=== PATIENT | male | born 1995 | race Caucasian/White ===

== ENCOUNTER 2024-01-19 16:43 | Emergency (ER) | payer SELFPAY ==
--- NOTE | 2024-01-19 17:04 | ED Physician Documentation ---
History of Present Illness - Stated complaint Stated Complaint: N/V - Chief complaint Chief Complaint: Abd Pain - History obtained from History obtained from: Patient - Additonal information Additional information: 28-year-old male who has a past medical history significant for cannabinol use presents with nausea and vomiting. He states symptoms started 4 days ago, and had been fairly persistent since then. His been dry heaving today as he has not been keeping much down. He denies any diarrhea or constipation, no urinary symptoms. He has not had a fever and he denies any abdominal pain other than some general soreness from vomiting. He tried some Zofran at home today but vomited it before it completely dissolved. He states that he recently started a new job and was told that there was a "virus" running through the office. No one else at home sick. Review of Systems Constitutional: reports: Reviewed and negative Eyes: reports: Reviewed and negative Ears: reports: Reviewed and negative Nose: reports: Reviewed and negative Throat: reports: Reviewed and negative Cardiac: reports: Reviewed and negative Respiratory: reports: Reviewed and negative GI: reports: Nausea, Vomiting. denies: Abdominal Pain, Abdominal Swelling, Constipation, Diarrhea : reports: Reviewed and negative Musculoskeletal: reports: Reviewed and negative Neurologic: reports: Reviewed and negative Psychiatric: reports: Reviewed and negative Endocrine: reports: Reviewed and negative PD PAST MEDICAL HISTORY - Past Medical History Past Medical History: No - Past Surgical History Past Surgical History: No - Present Medications Home Medications: Ambulatory Orders Medication Instructions Recorded Confirmed Promethazine [Phenergan] 25 mg PO Q6H PRN #10 tablet 01/19/24 - Allergies Allergies/Adverse Reactions: Allergies Allergy/AdvReac Type Severity Reaction Status Date / Time No Known Drug Allergies Allergy Verified 01/19/24 16:54 - Social History Does the pt smoke?: Yes Smoking Status: Current every day smoker Does the pt drink ETOH?: Yes Does the pt have substance abuse?: Yes Substance Use and Type: Marijuana PD ED PE NORMAL - Vitals Vital signs reviewed: Yes - General General: Alert and oriented X 3, No acute distress, Well developed/nourished - HEENT HEENT: Atraumatic, Moist mucous membranes - Neck Neck: Supple, no meningeal sign, No adenopathy - Cardiac Cardiac: RRR, No murmur - Respiratory Respiratory: No respiratory distress, Clear bilaterally - Abdomen Abdomen: Normal bowel sounds, Soft, Non tender, Non distended, No organomegaly - Derm Derm: Normal color, Warm and dry, No rash - Extremities Extremities: No deformity, No tenderness to palpate, Normal ROM s pain, No edema, No calf tenderness / cord - Neuro Neuro: Alert and oriented X 3 Eye Opening: Spontaneous - Psych Psych: Normal mood, Normal affect Results - Vitals Vitals: Vital Signs - 24 hr 01/19/24 16:47 Temperature 37.0 C Heart Rate 70 Respiratory 118 H Rate Blood Pressure 116/72 O2 Saturation 97 Oxygen O2 Source Room air - Labs Labs: Laboratory Tests 01/19/24 01/19/24 16:59 16:59 WBC 10.0 RBC 5.34 Hgb 16.3 Hct 44.2 MCV 82.8 MCH 30.5 MCHC 36.9 H RDW 11.4 L Plt Count 329 MPV 10.9 Neut # (Auto) 8.2 H Lymph # (Auto) 1.3 L [place] # (Auto) 0.5 Eos # (Auto) 0.0 Baso # (Auto) 0.0 Absolute Nucleated RBC 0.00 Nucleated RBC % 0.0 Sodium 139 Potassium 3.6 Chloride 100 L Carbon Dioxide 24 Anion Gap 15.0 H BUN 27 H Creatinine 1.0 Estimated GFR (MDRD) 88 L Glucose 107 H Calcium 10.5 H Total Bilirubin 3.5 H AST 19 ALT 13 Alkaline Phosphatase 60 Total Protein 7.7 Albumin 5.4 Globulin 2.3 Albumin/Globulin Ratio 2.3 H Lipase 16 PD Medical Decision Making - ED course Complexity details: reviewed results, re-evaluated patient, considered differential, d/w patient ED course: 28-year-old male presented with nausea and vomiting for the several days as described in HPI. The patient is well-appearing here on physical exam, mildly tachycardic but nontoxic, afebrile with stable blood pressure. He has no pain on abdominal exam specifically no right upper quadrant pain. Differentials considered included viral gastroenteritis, cannabinoid hyperemesis or cyclic vomiting, Withdrawal symptoms,pancreatitis, cholecystitis or biliary colic, abdominal infection. We obtained labs which are largely stable, he does not have a leukocytosis, his mildly elevated BUN at 27 stable creatinine, his bilirubin is elevated at 3.5 but LFTs are otherwise normal. Patient is feeling substantially improved after liter of IV fluid his heart is down to 70s, and he also received 2.5 mg of Inapsine. He has had no vomiting here and is now tolerating p.o. I encouraged patient to be monitored for longer as they wanted to give additional IV fluids and consider repeat lab testing given his elevated bilirubin however patient declined stating he gets quite anxious in hospitals. He states he is feeling much better at this point and would like to go home. I think this is likely a viral enteritis but I advised patient to have follow-up LFTs done to ensure bilirubin is improving. He was advised to return if he develops a fever, abdominal pain or new concerns. Departure - Departure Disposition: Home, Self Care Clinical Impression: Gastroenteritis, Hyperbilirubinemia Condition: Good Instructions: ED Nausea Vomiting Prescriptions: Promethazine [Phenergan] 25 mg PO Q6H PRN #10 tablet PRN Reason: Nausea / Vomiting Comments: Please stick to a clear liquid diet today, and try to stay well-hydrated. Slowly advance your diet to bland foods such as bread, applesauce, bananas or similar. If you continue to have issues with nausea and vomiting or you develop any abdominal pain, or fever, I would like you to return to the ER. Your enzyme bilirubin is somewhat elevated but your other liver enzymes are stable. This is likely elevated from vomiting and not taking any oral intake for the last several days but it can also be a sign of hepatitis, liver issues, or stones. I would like you to have this lab repeated in the next week or so if you are able to or sooner if you are worsening. Forms: PCP List
[2024-01-19] MEDS: SODIUM CHLORIDE 0.9% 1,000 ML IV STA (17:05)
[2024-01-19] MEDS: DROPERIDOL 5 MG/2 ML VIAL IVP STA (17:08)
[2024-01-19 17:20] LABS: BASOPHILS % (AUTO) 0.2 %; EOSINOPHILS % (AUTO) 0.1 %; HCT - HEMATOCRIT 44.2 % (42.0-52.0); HGB - HEMOGLOBIN 16.3 g/dL (14.0-18.0); LYMPHOCYTES # (AUTO) 1.3 10^3/uL (1.5-3.5); LYMPHOCYTES % (AUTO) 12.6 %; MEAN CORPUSCULAR HEMOGLOBIN 30.5 pg (27.0-31.0); MEAN CORPUSCULAR HGB CONC 36.9 g/dL (32.0-36.0); MEAN CORPUSCULAR VOLUME 82.8 fL (80.0-94.0); MEAN PLATELET VOLUME 10.9 fL (7.4-11.4); MONOCYTES # (AUTO) 0.5 10^3/uL (0.0-1.0); MONOCYTES % (AUTO) 5.2 %; NEUTROPHILS # (AUTO) 8.2 10^3/uL (1.5-6.6); NEUTROPHILS % (AUTO) 81.6 %; PLT - PLATELET COUNT 329 10^3/uL (130-450); RED BLOOD COUNT 5.34 10^6/uL (4.70-6.10); RED CELL DISTRIBUTION WIDTH 11.4 % (12.0-15.0)
[2024-01-19 17:35] LABS: ALBUMIN 5.4 g/dL (3.2-5.5); ALBUMIN/GLOBULIN RATIO 2.3 (1.0-2.2); BILIRUBIN,TOTAL 3.5 mg/dL (0.2-1.0); CALCIUM 10.5 mg/dL (8.5-10.3); POTASSIUM 3.6 mmol/L (3.5-4.5); TOTAL PROTEIN 7.7 g/dL (6.4-8.9)
[2024-01-19] MEDS: ONDANSETRON 4 MG/2 ML VIAL IVP STA (18:09)
[2024-01-19 18:18] VITALS: BP 117/74; O2SAT 98
== END 2024-01-19 18:18 | disposition home or self-care (01) ==
LOC: ED 16:43
DX: K52.9 Noninfective gastroenteritis and colitis, unspecified (principal); E80.6 Other disorders of bilirubin metabolism; F17.200 Nicotine dependence, unspecified, uncomplicated
CPT/HCPCS: 36415; 80053; 83690; 85025; 96361; 96374; 96375; 99283